=== PATIENT | female | born 1985 | race Caucasian/White ===

== ENCOUNTER 2019-09-24 22:46 | Emergency (ER) | payer BC, SELFPAY ==
[2019-09-24 22:49] VITALS: BP 163/110; PULSE 86; RESP 18; TEMP 36.8; O2SAT 100
--- NOTE | 2019-09-24 23:15 | ED.UPPEXIN ---
HPI - Extremity Injury (Upper) General Chief Complaint: Extremity Injury, Upper Stated Complaint: hands turning blue Time Seen by Provider: 09/24/19 23:14 Source: patient and RN notes reviewed Mode of arrival: other Limitations: no limitations History of Present Illness HPI narrative: Pt is a 34 y/o female who presents to the ED with c/o bilateral hand pain with swelling that began two weeks ago. Pt denies going to see her PCP about her sx. She states that she has a bad nerve in her hands and she reports the tips of her fingertips are tingling. Pt believes that her circulation is being cut off at night time. Pt tried taking Advil and Tylenol for her pain and she states that her pain is currently resolved. Pt denies a fever. MD complaint: injury to: left, right and hand Onset (ago): week(s) (2) Other injuries: none Relieving factors: medication (Tylenol and Advil) Associated symptoms: other (tingling in her fingertips) Treatments prior to arrival: NSAIDS Related Data Home Medications Medication Instructions Recorded Confirmed buprenorphine-naloxone [Suboxone] 1.5 film BUCCAL DAILY 09/24/19 09/24/19 Allergies Allergy/AdvReac Type Severity Reaction Status Date / Time avocado Allergy Severe Anaphylaxis Verified 09/24/19 23:04 clindamycin Allergy Intermediate Rash Verified 09/24/19 23:03 Review of Systems Review of Systems: All systems reviewed & are unremarkable except as noted in HPI and below Constitutional: Constitutional: Denies fever(s) Musculoskeletal: Musculoskeletal: Reports other (bilateral hand pain with swelling (resolved)) Neurologic: Reports tingling (in her fingertips) PMF Past Medical History Medical History (Updated 09/24/19 @ 23:44 by Muna Robins) HTN (hypertension) Surgical History Surgical History (Updated 09/24/19 @ 23:45 by Muna Robins) No history of previous surgery Social History Social History (Updated 09/24/19 @ 23:45 by Muna Robins) Smoking status: Never smoker Exam Const: General: no acute distress and well developed Orientation/consciousness: oriented to person, oriented to place, oriented to time and patient oriented x3 HENMT: Head: normocephalic Ears: external ears normal General nose exam: Normal external nose present Eyes: General: appearance normal, both eyes and all related structures Conjunctivae: conjunctivae normal Neck: Neck: normal visual inspection and full ROM Chest: Chest palpation & inspection: normal inspection of the chest and no tenderness Resp: Effort & Inspection: normal respiratory effort Auscultation: clear to auscultation bilaterally Cardio: Rate: regular rate Rhythm: regular rhythm Peripheral pulses: radial pulses present bilateral 2+ Skin: General skin exam: normal color and turgor normal Neuro: General: oriented to person, oriented to place, oriented to time and patient oriented x3 Cognition (Neuro): normal cognition Extrem: General: normal to inspection, full ROM and no pedal edema Psych: Appearance: grossly normal Mental Status: mental status grossly normal Affect: normal affect Course Reevaluation(s) Reevaluation #1: Pt left AMA before being d/c Date: 09/25/19 Time: 01:26 Vital Signs Vital signs: Vital Signs Temperature 36.8 C 09/24/19 22:49 Pulse Rate 86 09/24/19 22:49 Respiratory Rate 18 09/24/19 22:49 Blood Pressure 163/110 H 09/24/19 22:49 Pulse Oximetry 100 09/24/19 22:49 Temperature 36.8 C 09/24/19 22:49 Pulse Rate 86 09/24/19 22:49 Respiratory Rate 18 09/24/19 22:49 Blood Pressure 163/110 H 09/24/19 22:49 Pulse Oximetry 100 09/24/19 22:49 MDM - Extremity Injury (Upper) Lab Data Result diagrams: 09/24/19 23:47 09/24/19 23:47 Labs: Lab Results 09/24/19 09/24/19 09/24/19 Range/Units 23:47 23:47 23:51 WBC 10.5 H (4.5-10.0) K/mm3 RBC 4.64 (4.2-5.4) M/mm3 Hgb 13.7 (12.0-15.0) g/dL Hct 39.9 (37.0-47.0)
[2019-09-24 23:53] LABS: Basophils Absolute Auto 0.1 K/mm3 (0.0-0.1); Basophils Percent Auto 0.5 % (0.2-1.2); Eosinophils Absolute Auto 0.5 K/mm3 (0-0.3); Eosinophils Percent Auto 4.5 % (0-4.4); Hematocrit 39.9 % (37.0-47.0); Hemoglobin 13.7 g/dL (12.0-15.0); Immature Granulocyte Absolute 0.06 K/mm3 (0.00-0.031); Immature Granulocyte Percent A 0.6 % (0-0.5); Lymphocytes Absolute Auto 2.84 K/mm3 (0.9-3.2); Lymphocytes Percent Auto 27.2 % (18.3-44.2); Mean Corpuscular HGB Conc 34.3 g/dl (32-36); Mean Corpuscular Hemoglobin 29.5 pg (26-34); Mean Platelet Volume 8.4 fl (7.4-10.4); Monocytes Absolute Auto 0.6 K/mm3 (0.1-0.6); Monocytes Percent Auto 5.6 % (2.6-8.5); Neutrophils Absolute Auto 6.4 K/mm3 (1.3-6.7); Neutrophils Percent Auto 61.6 % (45.5-73.1); Platelet Count Result 297 k/mm3 (150-375); Red Blood Count 4.64 M/mm3 (4.2-5.4); Red Cell Distribution Width 12.5 % (11.5-14.5); White Blood Count 10.5 K/mm3 (4.5-10.0)
[2019-09-25 00:12] LABS: Blood Urea Nitrogen 12 mg/dL (7-17); CRP 1.1 mg/dL (<1.0); Calcium 9.6 mg/dL (8.4-10.2); Carbon Dioxide 29 mmol/L (22-30); Chloride 96 mmol/L (98-107); Estimated CRCL calculation 114 ml/min; Estimated Glomerular Filt Rate > 60; Glucose 137 mg/dL (65-105); Potassium 3.7 mmol/L (3.4-5.0); Sodium 139 mmol/L (137-145)
[2019-09-25 00:16] LABS: Add Urine Microscopic? YES; Appearance Urine Cloudy (Clear); Bilirubin Urine Negative (Negative); Blood Urine Negative (Negative); Color Urine Amber (Yellow); Glucose Urine UA Negative (Negative); Ketones Urine Negative (Negative); Leukocyte Esterase Ur 3+ LEU/UL (Negative); Mucus Urine Heavy /lpf; Nitrate Urine Negative (Negative); Protein Urine Negative (Negative); Squamous Epithelial Cell Urine Many /hpf (Few); Urobilinogen Urine Negative mg/dL (<2.0); WBC Urine 31-50 /hpf
[2019-09-25 00:52] LABS: Erythrocyte Sedimentation Rate 24 mm/hr (0-20)
== END 2019-09-25 01:20 | disposition left against medical advice (07) ==
PROVIDERS: Emergency Provider Emergency Medicine
DX: R20.2 Paresthesia of skin (principal)
CPT/HCPCS: 36415; 80048; 81001; 81025; 85025; 85652; 86140; 87086; 87088; 99199

== ENCOUNTER 2020-07-16 10:57 | Emergency (ER) | payer BC, SELFPAY ==
--- NOTE | 2020-07-16 11:04 | PC.NURSE ---
Pt has minor child with her, states her s.o. is enroute from work to get him. Pt and son placed in family services room.
--- NOTE | 2020-07-16 11:20 | PC.NURSE ---
pt is going to take her son to a security assurance analyst and then return to be seen
== END 2020-07-16 11:20 | disposition left against medical advice (07) ==
LOC: ANHED 12:13
DX: Z53.21 Procedure and treatment not carried out due to patient leaving prior to being seen by health care provider (principal)
CPT/HCPCS: 99199

== ENCOUNTER 2023-12-01 18:46 | Emergency (ER) | payer BC, SELFPAY ==
--- NOTE | 2023-12-01 18:49 | ED.SKABFB ---
HPI - Skin/Abscess/Foreign Bdy General Chief complaint: Skin/Abscess/Foreign Body Stated complaint: rash on right ankle Time Seen by Provider: 12/01/23 18:49 Source: patient Mode of arrival: ambulatory Limitations: no limitations History of Present Illness HPI narrative: Patient is a 38-year-old female presents with rash to right lateral ankle. Patient states she has had previous rashes similar on left ankle. Patient does report increased swelling in lower extremities and states she is trying to wear compression socks and elevate her legs when she can. Reports rash is itchy but does not spread. Related Data Home Medications Medication Instructions Recorded Confirmed buprenorphine 8 mg-naloxone 2 mg 1.5 film buccal DAILY 09/24/19 12/01/23 sublingual film (Suboxone) atorvastatin 10 mg tablet 10 mg PO DAILY 12/01/23 12/01/23 losartan 100 1 tablet PO DAILY 12/01/23 12/01/23 mg-hydrochlorothiazide 12.5 mg tablet metoprolol tartrate 25 mg tablet 25 mg PO DAILY 12/01/23 12/01/23 Allergies Allergy/AdvReac Type Severity Reaction Status Date / Time avocado Allergy Severe Anaphylaxis Verified 12/01/23 18:51 clindamycin Allergy Intermediate Rash Verified 12/01/23 18:51 Review of Systems Review of Systems: All systems reviewed & are unremarkable except as noted in HPI and below Constitutional: Constitutional: Denies body ache(s), Denies chills, Denies fatigue, Denies fever(s), Denies headache(s), Denies malaise and Denies weakness Eyes: Eyes: Denies blurry vision, Denies irritation and Denies loss of vision ENT: Denies otalgia, Denies headache(s), Denies nasal discharge, Denies sinus pain and Denies sore throat Cardiovascular: Cardiovascular: Denies chest pain, Denies irregular heart rhythm and Denies dyspnea Respiratory: Respiratory: Denies dyspnea Gastrointestinal: Gastrointestinal: Denies abdominal pain, Denies melena, Denies hematochezia, Denies diarrhea, Denies nausea and Denies vomiting Musculoskeletal: Musculoskeletal: Denies back pain, Denies myalgias and Denies arthralgias Integumentary/Breasts: Skin/Breast: Reports pruritus and Reports rash Neurologic: Denies headache(s), Denies loss of vision and Denies weakness Psychiatric: Psychiatric: Reports no additional psychiatric complaints Endocrine: Endocrine: Denies fatigue PMFSH Past Medical History Medical History HTN (hypertension) Surgical History Surgical History No history of previous surgery Social History Social History Smoking status: Never smoker Comments At time of signature, agree with nursing past medical, surgical, social and family history. There is no relevant family history pertinent to the presenting complaint. Exam Const: General: cooperative, healthy appearing, comfortable, no acute distress and well nourished Nutritional Appearance: well nourished Orientation/consciousness: patient oriented x3 Limitations: no limitations HENMT: Head: normal to inspection, normocephalic and atraumatic Ears: hearing grossly normal bilaterally and external ears normal Face/Nose/Sinus: Normal external nose present, normal facial exam and face symmetric Face and sinus: normal facial exam and face symmetric Mouth: Yes lip normal Eyes: General: appearance normal, both eyes and all related structures Alignment and Position: alignment normal and position normal Periorbital: periorbital findings normal Eyelids: eyelids normal Pupils: Equal, round and reactive pupils present EOM: EOMs intact bilaterally Neck: Neck: normal visual inspection, full ROM and supple Chest: Chest palpation & inspection: normal inspection of the chest Resp: Effort & Inspection: normal respiratory effort and able to speak in complete sentences Auscultation: clear to auscultation bilaterally Cardio:
[2023-12-01 18:59] VITALS: BP 157/92; PULSE 75; RESP 16; TEMP 37.4; O2SAT 98
== END 2023-12-01 19:18 | disposition home or self-care (01) ==
PROVIDERS: Emergency Provider Nurse Practitioner Family
DX: L30.9 Dermatitis, unspecified (principal); I10 Essential (primary) hypertension
CPT/HCPCS: 99213; G0463

== ENCOUNTER 2024-06-29 12:06 | Emergency (ER) | payer BC, SELFPAY ==
[2024-06-29 12:19] VITALS: BP 140/85; PULSE 73; RESP 16; TEMP 36.3; O2SAT 98
--- NOTE | 2024-06-29 12:26 | ED_ITS ---
HPI - Nausea/Vomiting/Diarrhea General Chief complaint: Upper Respiratory Infection Stated complaint: nausea Source: patient, RN notes reviewed and old records reviewed Mode of arrival: ambulatory Limitations: no limitations History of Present Illness HPI Narrative: Patient presents accompanied by her son, who is also a patient today. She is complaining of sore throat, nausea, diarrhea. She denies any active vomiting. She has not been taking any medications for her symptoms. She reports symptoms have been present for about 3 days. Most bothersome symptom is sore throat. States that she is able eat and drink without difficulty. Denies any injury or trauma. Voices no other concerns or complaints at this time Related Data Home Medications Medication Instructions Recorded Confirmed buprenorphine 8 mg-naloxone 2 mg 1.5 film buccal DAILY 09/24/19 12/01/23 sublingual film (Suboxone) metoprolol tartrate 25 mg tablet 25 mg PO DAILY 12/01/23 12/01/23 furosemide 40 mg tablet mg 06/29/24 06/29/24 Allergies Allergy/AdvReac Type Severity Reaction Status Date / Time avocado Allergy Severe Anaphylaxis Verified 06/29/24 12:13 clindamycin Allergy Intermediate Rash Verified 06/29/24 12:13 Review of Systems Review of Systems: All systems reviewed & are unremarkable except as noted in HPI and below Constitutional: Constitutional: Reports no additional constitutional complaints ENT: Reports system reviewed and no additional complaints, except as documented and Reports sore throat Cardiovascular: Cardiovascular: Reports no additional cardiovascular complaints Respiratory: Respiratory: Reports no additional respiratory complaints Gastrointestinal: Gastrointestinal: Reports as per HPI, Reports diarrhea, Reports nausea and Denies vomiting [facility] Past Medical History Medical History HTN (hypertension) Surgical History Surgical History No history of previous surgery Social History Social History Smoking status: Never smoker Comments At the time of my signature, I reviewed and agree with the nursing past medical, surgical, social, and family history. There is no relevant family history pertinent to the patient complaint. Exam Const: General: cooperative, no acute distress, alert and awake Orientation/consciousness: oriented to person, oriented to place and oriented to time HENMT: Head: normal to inspection Ears: TM's normal bilaterally Throat: posterior oropharynx abnormal erythema Resp: Effort & Inspection: normal respiratory effort and able to speak in complete sentences Auscultation: clear to auscultation bilaterally, no crackles, no rales, no rhonchi and no wheezes Cardio: Palpation: normal PMI Rate: regular rate Rhythm: regular rhythm Heart sounds: S1 normal heart sound present and S2 normal heart sound present Neuro: General: oriented to person, oriented to place and oriented to time Cranial nerves: Yes CN's II-XII intact bilaterally Psych: Appearance: grossly normal Thought process: Normal thought process present Insight: Good insight present (Psych) Judgement: Good judgement present (Psych) Course Course Level of Care: Express Care Visit Vital Signs Vital signs: Vital Signs Temperature 97.4 F L 06/29/24 12:19 Pulse Rate 73 06/29/24 12:19 Respiratory Rate 16 06/29/24 12:19 Blood Pressure 140/85 06/29/24 12:19 Pulse Oximetry 98 06/29/24 12:19 Oxygen Delivery Room Air 06/29/24 12:19 Temperature 97.4 F L 06/29/24 12:19 Pulse Rate 73 06/29/24 12:19 Respiratory Rate 16 06/29/24 12:19 Blood Pressure 140/85 06/29/24 12:19 Pulse Oximetry 98 06/29/24 12:19 Oxygen Delivery Room Air 06/29/24 12:19 Reviewed MDM - Nausea/Vomiting/Diarrhea MDM Narrative Medical decision making narrative: Positive rapid strep. Patient nontoxic appearing. Treat with p.o. antibiotics. Discharge instructions reviewed with patient, as well as provided in writing per nursing staff. The instructions also include specific and strict return/GO TO THE ER as well as f/u information. All questions have been answered, and the patient deny any further questions with discharge and discharge plan. Some parts of this dictation were generated by voice recognition software and may contain typographical and/or grammatical inaccuracies. Differential Diagnosis Differential diagnosis: Likely other (COVID, gastroenteritis, viral illness, pharyngitis) Medical Records Attestation: I reviewed the patient's medical records. Lab Data Attestation: I reviewed the patient's lab results. Discharge Plan Discharge Clinical Impression: Pharyngitis Qualifiers: Pharyngitis/tonsillitis etiology: streptococcus Qualified Code(s): J02.0 - Streptococcal pharyngitis Patient Disposition: Home, Self-Care Condition: Stable Instructions: Antibiotic Form, Pharyngitis (ED) Additional Instructions: Take all medication as prescribed. Follow with primary care provider. Emergency department for new or worse symptoms. Discard toothpaste and toothbrush after 48-72 hours of treatment Patient Language: [place] Prescriptions: New penicillin V potassium 500 mg tablet 500 mg PO Q12H 10 Days Qty: 20 0RF No Action metoprolol tartrate 25 mg tablet 25 mg PO DAILY furosemide 40 mg tablet buprenorphine-naloxone [Suboxone] 8-2 mg Film 1.5 film BUCCAL DAILY Follow-up/Referrals: Sandra,MD Navdeep [Primary Care Provider] - 2 Weeks Time of Disposition: 12:54
[2024-07-01 10:03] LABS: EDSTREPNEGPOS1 Positive (Negative)
== END 2024-06-29 13:00 | disposition home or self-care (01) ==
PROVIDERS: Emergency Provider Nurse Practitioner Family; PCP Internal Medicine
DX: J02.0 Streptococcal pharyngitis (principal); I10 Essential (primary) hypertension
CPT/HCPCS: 87880; 99213; G0463

== ENCOUNTER 2024-10-04 13:02 | Emergency (ER) | payer BC, SELFPAY ==
[2024-10-04 13:20] VITALS: BP 148/87; PULSE 70; RESP 16; TEMP 36; O2SAT 99
--- NOTE | 2024-10-04 13:54 | ED.GENADULT ---
HPI - General Adult General Chief complaint: Upper Respiratory Infection Stated complaint: chest congestion,cough,fever History of Present Illness HPI narrative: Griselda Nixon Is a 39-year-old female presents today with complaints of feeling fatigued, were now, congestion, cough started Monday. 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 and believes that is what she has.No fever/ chills/ chest pain / SOB Related Data Home Medications ?Medication ?Instructions ?Recorded ?Confirmed ?Last Taken ?Type buprenorphine 8 mg-naloxone 2 mg 1.5 film buccal DAILY 09/24/19 12/01/23 Unknown History sublingual film (Suboxone) albuterol sulfate 90 mcg/actuation inhalation 10/04/24 Unknown History aerosol inhaler losartan 100 mg tablet mg 10/04/24 Unknown History metoprolol succinate 50 mg mg PO 10/04/24 Unknown History tablet,extended release 24 hr triamterene 37.5 tablet 10/04/24 Unknown History mg-hydrochlorothiazide 25 mg tablet Allergies Allergy/AdvReac Type Severity Reaction Status Date / Time avocado Allergy Severe Anaphylaxis Verified 10/04/24 13:51 clindamycin Allergy Intermediate Rash Verified 10/04/24 13:51 Review of Systems Review of Systems: All systems reviewed & are unremarkable except as noted in HPI and below PMFSH Past Medical History Medical History HTN (hypertension) Surgical History Surgical History No history of previous surgery Social History Social History Smoking status: Never smoker Exam Narrative: GENERAL: Well-appearing, well-nourished, and in no acute distress. HEAD: Normocephalic, atraumatic. EYES: PERRLA and EOMI. ENT: Nares clear, no rhinorrhea or epistaxis. Mucous membranes moist. Oropharynx without tonsillar hypertrophy exudate or other lesions. Bilateral TMs pearly reyes nonbulging NECK: Supple. No adenopathy or masses. No carotid bruits or JVD CHEST: Clear to auscultation. No respiratory distress. No wheezes rales or rhonchi HEART: Regular rate and rhythm. No murmur heard. Normal peripheral pulses. ABDOMEN: Soft, nontender, nondistended, normal active bowel sounds. EXTREMITIES: Normal range of motion. No edema. SKIN: Warm, dry, no rash. NEURO: No focal deficits. Alert and oriented x3. PSYCH: Normal mood and affect. Course Course Level of Care: Express Care Visit Vital Signs Vital signs: Vital Signs Temperature 36.0 C L 10/04/24 13:20 Pulse Rate 70 10/04/24 13:20 Respiratory Rate 16 10/04/24 13:20 Blood Pressure 148/87 H 10/04/24 13:20 Pulse Oximetry 99 10/04/24 13:20 Oxygen Delivery Room Air 10/04/24 13:20 Temperature 36.0 C L 10/04/24 13:20 Pulse Rate 70 10/04/24 13:20 Respiratory Rate 16 10/04/24 13:20 Blood Pressure 148/87 H 10/04/24 13:20 Pulse Oximetry 99 10/04/24 13:20 Oxygen Delivery Room Air 10/04/24 13:20 Medical Decision Making MDM Narrative Medical decision making narrative: This 39 year old patient presents with symptoms most suggestive of viral upper respiratory tract infection. Lungs are clear bilaterally without any respiratory distress or accessory muscle use. checking Covid/Flu - POSITIVE FOR FLU A Patient is discharged home in stable condition with expectant management. Return precautions were provided. Procedures: Pulse oximetry interpretation - not hypoxic. Review of medical records. DISPOSITION: Discharged home in stable condition. IMPRESSION: Acute upper respiratory tract infection, likely viral Medical Records Medical records reviewed: Yes I reviewed the external patient's medical records. Vital Signs Vital Signs: Vital Signs Temperature 36.0 C L 10/04/24 13:20 Pulse Rate 70 10/04/24 13:20 Respiratory Rate 16 10/04/24 13:20 Blood Pressure 148/87 H 10/04/24 13:20 Pulse Oximetry 99 10/04/24 13:20 Oxygen Delivery Room Air 10/04/24 13:20 Temperature 36.0 C L 10/04/24 13:20 Pulse Rate 70 10/04/24 13:20 Respiratory Rate 16 10/04/24 13:20 Blood Pressure 148/87 H 10/04/24 13:20 Pulse Oximetry 99 10/04/24 13:20 Oxygen Delivery Room Air 10/04/24 13:20 Vitals reviewed by me Lab Data Lab results reviewed: Yes I reviewed the patient's lab results. Labs: Lab Results 10/04/24 Range/Units 14:07 POC Influenza A Ag Pending POC Influenza B Ag Pending POC SARS CoV-2 Ag Pending Discharge Plan Discharge Clinical Impression: Influenza A Patient Disposition: Home, Self-Care Condition: Stable Instructions: Antibiotic Form Additional Instructions: Continue to take Tylenol / Motrin for your body aches / fever Push oral hydration drinking plenty of fluids Follow up with your PCP in 1 week If you develop any worsening symptoms such as difficulty breathing/ chest pain/ shortness of breath then go to the ER> Patient Language: [place] Prescriptions: No Action metoprolol succinate 50 mg tablet extended release 24 hr PO triamterene-hydrochlorothiazid 37.5-25 mg tablet albuterol sulfate 90 mcg/actuation HFA aerosol inhaler INHALATION losartan 100 mg tablet buprenorphine-naloxone [Suboxone] 8-2 mg Film 1.5 film BUCCAL DAILY Follow-up/Referrals: Sandra,MD Navdeep [Primary Care Provider] - Stand Alone Forms: Work/School Release IP Time of Disposition: 14:08
[2024-10-04 14:09] LABS: EDCOVIDSCREEN Negative (Negative); EDINFLUASCREEN Positive (Negative); EDINFLUBSCREEN Negative (Negative)
== END 2024-10-04 14:15 | disposition home or self-care (01) ==
PROVIDERS: Emergency Provider Nurse Practitioner Family; PCP Internal Medicine
DX: J10.1 Influenza due to other identified influenza virus with other respiratory manifestations (principal); I10 Essential (primary) hypertension; Z79.899 Other long term (current) drug therapy; Z20.822 Contact with and (suspected) exposure to COVID-19
CPT/HCPCS: 87426; 87804; 99212; G0463

== ENCOUNTER 2025-07-01 11:29 | Emergency (ER) | payer BC, SELFPAY ==
--- NOTE | ~2025-07-01 | XR_ITS ---
EXAMINATION: XR chest 2V DATE: 07/01/2025 12:00 INDICATION: Cough TECHNIQUE: frontal and lateral views of the chest were obtained. COMPARISON: None FINDINGS: The lungs are clear with no focal airspace opacities, pulmonary edema, pleural effusion or pneumothorax. The cardiomediastinal silhouette is normal. Visualized bones and soft tissues are unremarkable. IMPRESSION: 1. No acute cardiopulmonary disease. Reviewed, dictated and finalized at location A. [facility]
[2025-07-01 11:38] VITALS: BP 136/80; PULSE 74; RESP 16; TEMP 36.4; O2SAT 94
--- NOTE | 2025-07-01 11:49 | ED.URI ---
HPI - URI/Sore Throat General Chief Complaint: Upper Respiratory Infection Stated Complaint: Cough/Headache Time Seen by Provider: 07/01/25 11:49 Source: patient and RN notes reviewed Mode of arrival: ambulatory Limitations: no limitations History of Present Illness HPI Narrative: 40-year-old female presents with concern for 3 day history of deep cough, headache, dizziness, nausea without emesis. She had pneumonia to be any of the ear and that is concerning her. She has not been having runny nose, stuffy nose, sore throat. She denies fever, body aches, chills, sweats. MD elicited complaint: cough Related Data Home Medications ?Medication ?Instructions ?Recorded ?Confirmed ?Last Taken ?Type buprenorphine 8 mg-naloxone 2 mg 1.5 film buccal DAILY 09/24/19 12/01/23 Unknown History sublingual film (Suboxone) losartan 100 mg tablet mg 10/04/24 Unknown History metoprolol succinate 50 mg mg PO 10/04/24 Unknown History tablet,extended release 24 hr Allergies Allergy/AdvReac Type Severity Reaction Status Date / Time avocado Allergy Severe Anaphylaxis Verified 07/01/25 11:42 clindamycin Allergy Intermediate Rash Verified 07/01/25 11:42 Review of Systems Review of Systems: CONSTITUTIONAL: Denies malaise, chills, sweats, or fever. Reports dizziness EYES: Denies visual changes, redness, or discharge. ENT: Denies rhinorrhea, congestion, sinus pain, otalgia and sore throat. CARDIOVASCULAR: Denies chest pain, palpitations, or edema. RESPIRATORY: Reports nonproductive cough. Reports occasional dyspnea. GASTROINTESTINAL: Denies abdominal pain, vomiting, diarrhea. Reports nausea SKIN: Denies rash or itching. MUSCULOSKELETAL: Denies myalgia. NEUROLOGIC: Reports headache. All systems reviewed & are unremarkable except as noted in HPI and below PMFSH Past Medical History Medical History HTN (hypertension) Surgical History Surgical History No history of previous surgery Social History Social History Smoking status: Never smoker Comments At time of signature, agree with nursing past medical, surgical, social and family history. There is no relevant family history pertinent to the presenting complaint Exam Narrative: GENERAL: Well-appearing, well-nourished, and in no acute distress. HEAD: Normocephalic EYES: PERRLA, conjunctivae clear ENT: Nares clear. Mucous membranes moist. TM pearly reyes with sharp light reflex bilaterally; no tragal tenderness. Oropharynx not erythematous without lesions. Tonsils not enlarged and without exudate, no drooling, no hoarseness, no trismus, uvula midline. NECK: Supple. No lymphadenopathy CHEST: Inspiratory and expiratory wheeze throughout, breath sounds equal. No rhonchi, rales, or stridor. No respiratory distress, speaks in full sentences. HEART: Regular rate and rhythm. No murmur heard. SKIN: Warm, dry, no rash. NEURO: Alert and oriented x3. PSYCH: Normal mood and affect Course Course Emergency Course: Patient is aware of diagnosis, understands and agrees to treatment plan. Anticipatory guidance given. Patient agrees to follow-up as directed and is aware of reasons to seek care at the emergency department. Portions of this record may have been created with voice recognition software Level of Care: Express Care Visit Reevaluation(s) Reevaluation #1: Wheezing improved, patient still has mild inspiratory wheeze throughout Date: 07/01/25 Time: 12:15 Vital Signs Vital signs: Vital Signs Temperature 97.5 F L 07/01/25 11:38 Pulse Rate 74 07/01/25 11:38 Respiratory Rate 16 07/01/25 11:38 Blood Pressure 136/80 07/01/25 11:38 Pulse Oximetry 94 07/01/25 11:38 Oxygen Delivery Room Air 07/01/25 11:38 Temperature 97.5 F L 07/01/25 11:38 Pulse Rate 74 07/01/25 11:38 Respiratory Rate 16 07/01/25 11:38 Blood Pressure 136/80 07/01/25 11:38 Pulse Oximetry 94 07/01/25 11:38 Oxygen Delivery Room Air 07/01/25 11:38 Reviewed. MDM - URI/Sore Throat MDM Narrative Medical decision making narrative: Differential diagnosis considered: Lira virus, strep pharyngitis, allergic rhinitis, upper respiratory tract infection, sinusitis, rhinosinusitis, nasopharyngitis. viral pharyngitis, otitis media, otitis externa, pneumonia, bronchitis, viral cough syndrome, viral syndrome, and influenza. Exam findings show no acute concerns or changes; patient is non-toxic appearing and is in no distress. Patient is appropriate for outpatient treatment and follow-up. Lab Data Attestation: I reviewed the patient's lab results. Critical Care Time Critical Care Time Critical Care Time: No Discharge Plan Discharge Clinical Impression: Bronchitis Patient Disposition: Home Condition: Stable Instructions: How to Use a Metered-Dose Inhaler (ED) Additional Instructions: Viral illness may last between 7-21 days; antibiotics do not cure viral illness and are NOT recommended at this time. Recommend antihistamine such as Benadryl at night time and Zyrtec or Marilee during the day Use inhaler as needed for cough, wheezing, shortness of breath or chest tightness. Also, recommend symptomatic treatment includes: rest, fluids, and increase humidity of the air at home. Recommend Acetaminophen as directed on the bottle to reduce fever, pain, headache. Avoid smoking/second-hand smoke. Please schedule a follow-up visit with your personal physician for further evaluation and treatment within 3-5days. If your symptoms persist, change or worsen significantly before you can contact your personal physician then please, without delay, go to the emergency department for further evaluation. Patient Language: Turkish Prescriptions: New albuterol sulfate 90 mcg/actuation HFA aerosol inhaler 2 puff INHALATION QID PRN (Reason: shortness of breath or wheezing) Qty: 8.5 0RF (DME) BreatheRite Valved MDI Chamber Spacer See Rx Instructions .Route Qty: 1 0RF Rx Instructions: As directed prednisone 20 mg tablet 40 mg PO DAILY 5 Days Qty: 10 0RF No Action metoprolol succinate 50 mg tablet extended release 24 hr PO losartan 100 mg tablet buprenorphine-naloxone [Suboxone] 8-2 mg Film 1.5 film BUCCAL DAILY Follow-up/Referrals: Sandra,MD Navdeep [Primary Care Provider, Unknown] Time of Disposition: 12:15
[2025-07-01] MEDS: IPRATROPIUM 0.5 MG/ALBUTEROL SULFATE 2.5 MG (BASE) AMPUL.NEB 3 ML INHALATION (11:57)
== END 2025-07-01 12:20 | disposition home or self-care (01) ==
PROVIDERS: Emergency Provider Nurse Practitioner; PCP Internal Medicine
DX: J40 Bronchitis, not specified as acute or chronic (principal); I10 Essential (primary) hypertension
CPT/HCPCS: 71046; 94640; 99213; G0463

== ENCOUNTER 2025-07-20 12:51 | Emergency (ER) | payer BC, SELFPAY ==
--- NOTE | 2025-07-20 12:54 | ED.URI ---
HPI - URI/Sore Throat General Chief Complaint: Upper Respiratory Infection Stated Complaint: Cough/SOB Time Seen by Provider: 07/20/25 12:54 Source: patient Mode of arrival: ambulatory Limitations: no limitations History of Present Illness HPI Narrative: Griselda is a 40 year old female patient presenting to the clinic today with c/o non productive cough and shortness of breath. States she was seen here 2 weeks ago for similar symptoms and she was Rx of albuterol inhaler. States the inhaler does help some but feels as though she is using it to often. Shortness of breath occurs after coughing and she has a hard time catching her breath. No fever, chills, or body aches. Had pneumonia back in August. No history of asthma or COPD. She is a non-smoker. MD elicited complaint: sore throat and nasal congestion Related Data Home Medications ?Medication ?Instructions ?Recorded ?Confirmed ?Last Taken ?Type buprenorphine 8 mg-naloxone 2 mg 1.5 film buccal DAILY 09/24/19 12/01/23 Unknown History sublingual film (Suboxone) losartan 100 mg tablet mg 10/04/24 Unknown History metoprolol succinate 50 mg mg PO 10/04/24 Unknown History tablet,extended release 24 hr Allergies Allergy/AdvReac Type Severity Reaction Status Date / Time avocado Allergy Severe Anaphylaxis Verified 07/20/25 13:04 clindamycin Allergy Intermediate Rash Verified 07/20/25 13:04 Review of Systems Review of Systems: Pertinent positives per HPI. Patient denies any fever, chills, rash, headache, visual changes, dizziness, chest pain, palpitations, nausea, vomiting, diarrhea, constipation, abdominal pain, or any urinary issues. [facility] Past Medical History Medical History HTN (hypertension) Surgical History Surgical History No history of previous surgery Social History Social History Smoking status: Never smoker Comments At the time of my signature, I reviewed and agree with the nursing past medical, surgical, social, and family history. There is no relevant family history pertinent to the patient complaint. Exam Narrative: General: Well-developed, morbidly obese, in no apparent distress Head: Normocephalic, atraumatic Eyes: Pupils equally round and reactive to light bilaterally, EOM intact, sclera and conjunctive clear, no discharge, lids normal Ears: TMs intact and clear, ear canals clear, no drainage, grossly hearing normal. Nose: Nares patent, no discharge, no inflammation, no sinus tenderness. Mouth: Oral pharynx without lesions or masses, good dentition, MMM. Neck: Supple, trachea midline, no enlargement of anterior or posterior cervical nodes, no thyroid masses or goiter palpable. Cardio: Regular rate and rhythm, s1 and s2 normal, no murmur appreciated. Resp: Lung sounds are tight with expiratory wheezing throughout lung orozco, no rhonchi, rales, or rubs. No retractions. Able speak in full sentences, oxygen saturations 99% on room air Course Course Level of Care: Express Care Visit Vital Signs Vital signs: Vital Signs Temperature 36.6 C 07/20/25 13:02 Pulse Rate 76 07/20/25 13:02 Respiratory Rate 18 07/20/25 13:02 Blood Pressure 146/88 H 07/20/25 13:02 Pulse Oximetry 99 07/20/25 13:02 Oxygen Delivery Room Air 07/20/25 13:02 Temperature 36.6 C 07/20/25 13:02 Pulse Rate 76 07/20/25 13:15 Respiratory Rate 20 07/20/25 13:15 Blood Pressure 146/88 H 07/20/25 13:02 Pulse Oximetry 99 07/20/25 13:15 Oxygen Delivery Room Air 07/20/25 13:02 [facility] Narrative Medical decision making narrative: At the time of visit patient is resting comfortably on the exam table. Patient appears to be nontoxic. c/o non productive cough and shortness of breath. States she was seen here 2 weeks ago for similar symptoms and she was Rx of albuterol inhaler. States the inhaler does help some but feels as though she is using it to often. Shortness of breath occurs after coughing and she has a hard time catching her breath. No fever, chills, or body aches. Had pneumonia back in August. No history of asthma or COPD. She is a non-smoker. Hand-held neb treatment -DuoNeb ordered. Medications: Hand-held neb treatment-DuoNeb treatment given. Patient's symptoms/lung sounds improved Plan: I suspect patient has bronchitis. Prescription for 10 day taper dose of prednisone was sent to pharmacy. Patient may continue using albuterol inhaler as prescribed. Supportive measures were discussed with the patient and they voiced understanding discharge instructions and agrees to treatment plan. Return precautions reviewed Differential Diagnosis Differential Diagnosis: Differential diagnostic considerations for upper respiratory infection include upper respiratory infection, croup, otitis media, sinusitis, viral infection, bronchitis, influenza, pharyngitis, strep, uvulitis, pneumonia Discharge Plan Discharge Clinical Impression: Bronchitis Patient Disposition: Home Condition: Stable Instructions: Antibiotic Form, Acute Bronchitis (ED) Additional Instructions: DuoNeb treatment was given in the clinic today. Continue albuterol as prescribed Take prescription medications only as prescribed-10 day taper dose of prednisone Increase fluids and stay well hydrated May take Tylenol or motrin as directed on bottle for pain/fever May use Flonase 1 spray in each nare daily May take OTC antihistamines such as Zyrtec or Claritin daily as directed on bottle May apply Vicks vapor rub to chest to open sinuses Sinus rinses for congestion Cepacol spray, cough drops, throat lozenges, warm tea with honey/lemon, gargle salt water to soothe throat BRAT diet for diarrhea Clear liquids x 24 hours then advance as tolerated for nausea/vomiting Go to the ED if you develop a worsening in your condition- high fever not controlled by Tylenol or Motrin, dehydration, weakness, lethargy, shortness of breath, or chest pain. Follow up with your PCP in 3-5 days if symptoms persist. Patient Language: Telugu Prescriptions: New prednisone 10 mg tablet 10 mg PO DAILY Qty: 30 0RF Rx Instructions: 60mg po daily on day 1, 40mg po daily on days 2-4, 30mg po daily on days 5-6, 20mg po daily on days 7-8, 10mg po daily on days 9-10 No Action metoprolol succinate 50 mg tablet extended release 24 hr PO losartan 100 mg tablet albuterol sulfate 90 mcg/actuation HFA aerosol inhaler 2 puff INHALATION QID PRN (Reason: shortness of breath or wheezing) Qty: 8.5 0RF (DME) BreatheRite Valved MDI Chamber Spacer See Rx Instructions .Route Qty: 1 0RF Rx Instructions: As directed buprenorphine-naloxone [Suboxone] 8-2 mg Film 1.5 film BUCCAL DAILY Follow-up/Referrals: Sandra,MD Navdeep [Primary Care Provider, Unknown] Quality NIHSS Nursing Documentation ED NIHSS nursing documentation: reviewed/agree
[2025-07-20 13:02] VITALS: BP 146/88; PULSE 76; RESP 18; TEMP 36.6; O2SAT 99
[2025-07-20 13:15] VITALS: PULSE 76; RESP 20; O2SAT 99
[2025-07-20] MEDS: IPRATROPIUM 0.5 MG/ALBUTEROL SULFATE 2.5 MG (BASE) AMPUL.NEB 3 ML INHALATION (13:25)
== END 2025-07-20 13:50 | disposition home or self-care (01) ==
PROVIDERS: Emergency Provider Nurse Practitioner Family; PCP Internal Medicine
DX: J40 Bronchitis, not specified as acute or chronic (principal); I10 Essential (primary) hypertension
CPT/HCPCS: 94640; 99213; G0463